=== PATIENT | female | born 1980 | race Caucasian/White ===

== ENCOUNTER 2019-08-14 04:00 | Emergency (ER) | payer BC ==
[2019-08-14] MEDS ORDERED: Sodium Chloride 0.9% 2.5 ML Syringe FLUSH PRN (04:10)
[2019-08-14] MEDS ORDERED: Ketorolac 30 MG/ML SDV IVPUSH ONE (04:10)
[2019-08-14] MEDS ORDERED: Aspirin 81 MG Tab.Chew PO ONE (04:10)
[2019-08-14] MEDS ORDERED: Sodium Chloride 0.9% 10 ML Syringe FLUSH PRN (04:10)
--- NOTE | 2019-08-14 04:27 | EDM.PDOC ---
ED HPI GENERAL MEDICAL PROBLEM - General Chief Complaint: General Stated Complaint: HARD TIME BREATHING Time Seen by Provider: 08/14/19 04:10 Source of Information: Reports: Patient - History of Present Illness INITIAL COMMENTS - FREE TEXT/NARRATIVE: The patient is a 38-year-old female with a history of lupus who presents to the ER with numerous complaints. The patient states that she thinks she is having a lupus flare. She does not see a doctor and does not take any medications for her lupus. She states that she is having generalized body aches, all of her joints are aching, and she has had some low-grade fevers, no coughing but she is having chest pain and she feels short of breath with exertion. She also states that she had some pain radiating to her neck and both sides of her neck turned red. No hemoptysis, no syncope or near syncope, no leg swelling, no other acute complaints with the exception that she also has a migraine now with associated photophobia. She took some Aleve at home but it did not help her symptoms. Last dose was approximately 6 to 8 hours ago. chest Pain Score (Numeric/FACES): 8 - Related Data Allergies Allergy/AdvReac Type Severity Reaction Status Date / Time erythromycin base Allergy Hives Verified 08/14/19 04:18 Sulfa (Sulfonamide Allergy Hives Verified 08/14/19 04:18 Antibiotics) all "cillins" Allergy Hives Uncoded 08/14/19 04:18 Home Meds: Home Meds . [No Known Home Meds] 08/14/19 [History] ED ROS GENERAL - Review of Systems Review Of Systems: See Below (Positive for low-grade fevers, positive for myalgias, positive for arthralgias, positive for chest pain, positive shortness of breath, positive for dyspnea exertion, negative for hemoptysis, negative for leg swelling, negative for syncope, insert review of systems) ED EXAM, GENERAL - Physical Exam Exam: See Below Free Text/Narrative:: Constitutional: No acute distress, Non-toxic appearance HEENT.: Normocephalic, Atraumatic, PERRL, EOMI, External ears are atraumatic, Oropharynx clear and moist without lesions or masses, nares are patent without epistaxis Neck: Normal range of motion, Trachea Midline, No stridor Respiratory.: No respiratory distress, No tachypnea, Lungs Clear to Auscultation bilaterally without wheezes, rales, or rhonchi Cardiovascular.: Mildly tachycardic rate and Rhythm without murmurs, rubs, or gallops, good peripheral perfusion GI: Abdomen soft and non tender, no masses, no rebound, rigidity, or guarding Genital Urinary: Deferred Musculoskeletal: Good range of motion. All 4 extremities present and atraumatic , no edema Back: Full Range of Motion Skin: Warm, Dry, Color is ethnicity appropriate, No acute rash. Lymphatic: No lymphadenopathy noted Neurological: Alert, Awake and oriented x 3, No focal deficits noted appreciate , GCS 15 Psych: Not psychotic Course - Vital Signs Text/Narrative:: The patient states that she is having a lupus flare but the patient does not have any rash, there is no joint swelling, etc. She is slightly tachycardic with a reported subjective dyspnea although the patient does not have dyspneic speech, she does not appear short of breath on exam, etc. however, it is also possible that there is more than 1 process going on at this time such as a viral syndrome in conjunction with a pulmonary embolism, or some type of rheumatological process in conjunction with the PE, etc. Differential diagnosis would include myocarditis, endocarditis, pericardial effusion, acute coronary syndrome, pulmonary embolism, pulmonary infarction, pneumothorax, pleural effusion, thoracic masses, pneumothorax, others ECG The ECG was read and interpreted by me. There are p waves before every QRS with a ventricular rate of 100. The GA, QRS, and QT intervals are all normal. [place] is normal. ST segments are baseline and the T wave morphology is normal. Final interpretation is a normal Sinus rhythm and a normal ECG. Chest x-ray is reviewed and interpreted by me -there are no pulmonary infiltrates, pleural effusions, pneumothorax, thoracic masses or any acute pathology. The patient is requesting time off of work but there is no objective evidence of any malignant cause of the patient's symptomology (lungs are clear, she is not wheezing, she has no rales or rhonchi, vital signs are unremarkable from an emergency standpoint, she has no lung tumor, pneumonia, pulmonary embolism, pneumothorax, or any objective signs/symptoms of any viral illness or any other malignant pathology. I told her that if she wants time off of work that she needs to get herself a primary care physician but she refused and states that she will "be back". PCP follow-up will be provided for her if she so chooses. Last Recorded V/S: Last Vital Signs Temp 36.6 C 08/14/19 04:01 Pulse 104 H 08/14/19 05:45 Resp 18 08/14/19 05:45 BP 137/92 H 08/14/19 05:45 Pulse Ox 100 08/14/19 05:45 - Orders/Labs/Meds Orders: Active Orders 24 hr Category Date Time Status Sodium Chloride 0.9% [Saline Flush] Med 08/14/19 04:10 Active 10 ml FLUSH ASDIRECTED PRN Sodium Chloride 0.9% [Saline Flush] Med 08/14/19 04:10 Active 2.5 ml FLUSH ASDIRECTED PRN Saline Lock Insert [OM.PC] Stat Oth 08/14/19 04:10 Ordered Medication Orders Sodium Chloride (Saline Flush) 10 ml FLUSH ASDIRECTED PRN PRN Reason: Keep Vein Open Sodium Chloride (Saline Flush) 2.5 ml FLUSH ASDIRECTED PRN PRN Reason: Keep Vein Open Labs: Laboratory Tests 08/14/19 08/14/19 08/14/19 Range/Units 04:15 04:15 04:15 WBC 13.07 H (4.0-11.0) K/uL RBC 4.06 L (4.30-5.90) M/uL Hgb 12.2 (12.0-16.0) g/dL Hct 37.2 (36.0-46.0) % MCV 91.6 (80.0-98.0) fL MCH 30.0 (27.0-32.0) pg MCHC 32.8 (31.0-37.0) g/dL RDW Std Deviation 46.1 (28.0-62.0) fl RDW Coeff of [place] 14 (11.0-15.0) % Plt Count 283 (150-400) K/uL MPV 10.10 (7.40-12.00) fL Neut % (Auto) 80.6 H (48.0-80.0) % Lymph % (Auto) 9.0 L (16.0-40.0) % [place] % (Auto) 9.4 (0.0-15.0) % Eos % (Auto) 0.8 (0.0-7.0) % Baso % (Auto) 0.2 (0.0-1.5) % Neut # (Auto) 10.6 H (1.4-5.7) K/uL Lymph # (Auto) 1.2 (0.6-2.4) K/uL [place] # (Auto) 1.2 H (0.0-0.8) K/uL Eos # (Auto) 0.1 (0.0-0.7) K/uL Baso # (Auto) 0.0 (0.0-0.1) K/uL Nucleated RBC % 0.0 /100WBC Nucleated RBCs # 0 K/uL D-Dimer, Quantitative 0.93 H (0.0-0.50) mg/L FEU Sodium 138 (136-145) mmol/L Potassium 4.1 (3.5-5.1) mmol/L Chloride 101 (98-107) mmol/L Carbon Dioxide 28.0 (21.0-32.0) mmol/L BUN 18 (7.0-18.0) mg/dL Creatinine 1.1 H (0.6-1.0) mg/dL Est Cr Clr Drug Dosing TNP Estimated GFR (MDRD) 55.3 ml/min Glucose 98 (74-106) mg/dL Calcium 9.2 (8.5-10.1) mg/dL Total Bilirubin 0.3 (0.2-1.0) mg/dL AST 30 (15-37) IU/L ALT 28 (14-63) IU/L Alkaline Phosphatase 73 (46-116) U/L Troponin I < 0.050 (0.000-0.056) ng/mL Total Protein 7.6 (6.4-8.2) g/dL Albumin 3.6 (3.4-5.0) g/dL Globulin 4.0 (2.6-4.0) g/dL Albumin/Globulin Ratio 0.9 (0.9-1.6) Meds: Medications Generic Name Dose Route Start Last Admin Trade Name Freq PRN Reason Stop Dose Admin Sodium Chloride 10 ml 08/14/19 04:10 Saline Flush FLUSH ASDIRECTED PRN Keep Vein Open Sodium Chloride 2.5 ml 08/14/19 04:10 Saline Flush FLUSH ASDIRECTED PRN Keep Vein Open Discontinued Medications Generic Name Dose Route Start Last Admin Trade Name Freq PRN Reason Stop Dose Admin Aspirin 324 mg 08/14/19 04:10 08/14/19 04:25 Aspirin PO 08/14/19 04:11 324 mg ONETIME ONE Administration Iopamidol 100 ml 08/14/19 05:06 08/14/19 05:33 Isovue-370 (76%) IVPUSH 08/14/19 05:07 100 ml ONETIME STA Administration Ketorolac Tromethamine 30 mg 08/14/19 04:10 08/14/19 04:25 Toradol IVPUSH 08/14/19 04:11 30 mg ONETIME ONE Administration Departure - Departure Time of Disposition: 06:09 Disposition: Home, Self-Care 01 Condition: Good Clinical Impression: Chest pain - Discharge Information *PRESCRIPTION DRUG MONITORING PROGRAM REVIEWED*: Not Applicable *COPY OF PRESCRIPTION DRUG MONITORING REPORT IN PATIENT CROW: Not Applicable Instructions: Nonspecific Chest Pain, [id number] Referrals: PCP,None [Primary Care Provider] - Forms: ED Department Discharge Sepsis Event Note - Evaluation Sepsis Screening Result: No Definite Risk - Focused Exam Vital Signs: Vital Signs Temp Pulse Resp BP Pulse Ox 08/14/19 05:45 104 H 18 137/92 H 100 08/14/19 04:01 36.6 C 101 H 19 153/101 H 100 Date Exam was Performed: 08/14/19 Time Exam was Performed: 06:07 - My Orders Last 24 Hours: My Active Orders 08/14/19 04:10 Sodium Chloride 0.9% [Saline Flush] 10 ml FLUSH ASDIRECTED PRN Sodium Chloride 0.9% [Saline Flush] 2.5 ml FLUSH ASDIRECTED PRN Saline Lock Insert [OM.PC] Stat - Assessment/Plan Last 24 Hours: My Active Orders 08/14/19 04:10 Sodium Chloride 0.9% [Saline Flush] 10 ml FLUSH ASDIRECTED PRN Sodium Chloride 0.9% [Saline Flush] 2.5 ml FLUSH ASDIRECTED PRN Saline Lock Insert [OM.PC] Stat
--- NOTE | 2019-08-14 04:29 | CR ---
INDICATION: Chest pain TECHNIQUE: Chest radiograph 1 view COMPARISON: None FINDINGS: Mediastinum: The mediastinum is normal in appearance. The heart silhouette is normal in size and morphology. Lung: Both lungs are unremarkable in appearance. No sign of pleural effusion seen. No pneumothorax is identified. Bone and Soft tissue: Unremarkable for age. IMPRESSION: 1. No acute cardiopulmonary disease is seen. Dictated by: Jhonatan Hayes MD @ 08/14/2019 04:27:47 (Electronically Signed)
[2019-08-14 04:49] LABS: BLOOD UREA NITROGEN,BUN 18 mg/dL (7.0-18.0); CHLORIDE,CL 101 mmol/L (98-107); GLUCOSE RANDOM 98 mg/dL (74-106); POTASSIUM,K 4.1 mmol/L (3.5-5.1); SODIUM,NA 138 mmol/L (136-145)
[2019-08-14] MEDS ORDERED: Iopamidol 755 Mg/ML 100 ML Bottle IVPUSH STA (05:06)
--- NOTE | 2019-08-14 06:00 | CT ---
INDICATION: Chest pain shortness of breath with elevated d-dimer TECHNIQUE: CT chest with i.v. contrast using pulmonary angiographic technique. Coronal and sagittal reformats were obtained. CONTRAST: 100 mL Isovue 370 COMPARISON: None FINDINGS: Cardiovascular: The pulmonary arteries are unremarkable in enhancement with no evidence of acute pulmonary embolism. The heart has an unremarkable appearance and size. No sign of aneurysm in the thoracic aorta. Mediastinum: No mass or adenopathy seen. Lung: Bibasilar mild ground-glass atelectasis is seen. Pleura and pericardium: Trace bilateral pleural effusions are seen. No significant pericardial effusion is present. Chest wall and axilla: Axillary lymph nodes present bilaterally with the largest on the left measuring 1 cm. Bone: Unremarkable for age. Upper abdomen: A tiny calcified gallstone is noted. IMPRESSIONS: 1. No CT evidence of acute pulmonary emboli seen. 2. Axillary lymph nodes present bilaterally with the largest on the left measuring 1 cm. Clinical follow-up is recommended. 3. Trace bilateral pleural effusions are seen. Dictated by Jhonatan Hayes MD @ 08/14/2019 5:59:54 AM Please note that all CT scans at this facility use dose modulation, iterative reconstruction, and/or weight-based dosing when appropriate to reduce radiation dose to as low as reasonably achievable. Dictated by: Jhonatan Hayes MD @ 08/14/2019 05:59:59 (Electronically Signed)
== END 2019-08-14 06:20 | disposition home or self-care (01) ==
LOC: MW.ED 04:00
DX: R07.9 Chest pain, unspecified (principal); Z88.2 Allergy status to sulfonamides; Z88.1 Allergy status to other antibiotic agents; Z88.8 Allergy status to other drugs, medicaments and biological substances
CPT/HCPCS: 36415; 71045; 71275; 80053; 84484; 85025; 85379; 93005; 96374; 99285; A9270; J1885; Q9967